=== PATIENT | female | born 1980 | race Caucasian/White ===

== ENCOUNTER 2018-08-01 12:08 | Inpatient (IN) ==
--- NOTE | 2018-08-01 12:41 | Diag Imaging Result Doc PS360 ---
EXAM: CHEST-1 VIEW HISTORY: sepsis TECHNIQUE: Chest single view COMPARISON: 09/04/2015 FINDINGS: The lungs are well expanded. The heart is not enlarged. The vessels are not distended. There are no infiltrates. No effusion identified. IMPRESSION: No pneumonia. Electronically signed by Baldev Naranjo 08/01/2018 12:39 PM
[2018-08-01 13:29] LABS: BASO# 0.03 X1000 (0.0-0.2); BASO% 0.2 % (0.0-0.8); EOS# 0.06 X1000 (0.0-0.7); EOS% 0.3 % (0.0-10.0); HEMATOCRIT 39.1 % (37.0-47.0); HEMOGLOBIN 13.5 g/dL (12.0-16.0); IMM GRAN# 0.09 X1000 (0.0-0.04); IMM GRAN% 0.5 % (0.0-0.5); LYMPH# 1.76 X1000 (1.2-3.4); LYMPH% 9.5 % (20.5-51.1); MCH 29.2 PG (27-31); MCHC 34.5 g/dL (33-37); MCV 84.6 FL (81-99); MONO# 0.93 X1000 (0.11-0.59); MPV 9.1 FL (7.4-10.4); NEUT# 15.73 X1000 (1.4-6.5); NEUT% 84.5 % (42.2-75.2); PLT 508 X1000 (130-400); RBC 4.62 XMIL (4.2-5.4); RDW 13.9 % (11.5-14.5)
[2018-08-01 13:44] LABS: INR 1.07; PROTIME 14.4 Seconds (11.0-16.0)
[2018-08-01 13:45] LABS: PTT 33.4 Seconds (22.3-41.8)
[2018-08-01] MEDS ORDERED: ZOFRAN IV ONE (13:57)
[2018-08-01] MEDS ORDERED: DILAUDID IV ONE (13:57)
[2018-08-01 13:58] LABS: AGAP 11; ALBUMIN 3.7 g/dL (3.5-5.0); ALKALINE PHOSPHATASE 91 U/L (32-104); BUN 11 mg/dL (8-22); CALCIUM 8.8 mg/dL (8.8-10.2); CHLORIDE 97 mmol/L (98-107); CK PROFILE 38 U/L (24-173); COSMO 268; CREATININE 0.7 mg/dL (0.5-0.9); ESTIMATED GFR > 60; GLUCOSE 110 mg/dL (70-104); GOT 10 U/L (10-30); GPT 8 U/L (10-36); SODIUM 134 mmol/L (136-145); TCO2 26 mmol/L (25-35); TOTAL PROTEIN 6.6 g/dL (6.3-8.3)
--- NOTE | 2018-08-01 14:07 | PROVIDER DOCUMENTATION ---
This chart was entered by Clary Marx Scribe, acting as scribe for Joe Haile MD. HPI-General Adult - General Chief Complaint: Return/Recheck Stated Complaint: FACE SWELLINGS Time Seen by Provider: 08/01/18 13:36 Source: patient Allergies/Adverse Reactions: Patient Allergies Allergy/AdvReac Type Severity Reaction Status Date / Time No Known Allergies Allergy Verified 02/24/17 20:00 Home Medications: Home Medication List Medication Instructions Recorded Confirmed Last Taken Type Buprenorphine/Naloxone S.l. 07/21/18 07/21/18 Unknown History [Suboxone 8 mg/2 mg] Clindamycin [Cleocin] 300 mg PO Q6HR #80 cap 07/21/18 Unknown Rx Ibuprofen [Motrin] 600 mg PO Q6HR #30 tab 07/21/18 Unknown Rx - History of Present Illness -Gen Adult Nature of Presenting Problems: 37yof c/o L-sided eyelid and L-sided facial swelling for two weeks. She reports that she was seen at [facility] on 07/21/18 for similar symptoms. She reports her symptoms have worsened recently. She reports she is taking prescribed clindamycin currently. She reports the swelling started with a toothache. She d enies any difficulty breathing. She denies having a PCP currently. She reports she is has current suboxone use. 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 She denies any other complaints currently. She denies fever, chills, nausea, vomiting, diarrhea, cp, and sob. Location of Pain/Injury: reports: face (L-sided eyelid and L-sided facial swelling) Quality of Pain: reports: other ("pain") Severity: reports: moderate Onset/Duration: reports: other (2 weeks) Timing: reports: still present, constant Context/Activities at Onset: reports: other (dental abscess) Modifying Factors: improves with: nothing Associated Symptoms: denies: chest pain, fever/chills, nausea, shortness of breath, vomiting Similar Symptoms Previously?: Yes Recently seen or treated by another doctor?: Yes Review of Systems - Adult - REVIEW OF SYSTEMS - ADULT Constitutional: denies: chills, fever Eyes: reports: no symptoms reported Ears, Nose, Mouth & Throat: reports: other (L-sided eyelid and L-sided facial swelling). denies: ear discharge, ear pain Cardiovascular: denies: chest pain, palpitations Respiratory: denies: cough, shortness of breath Gastrointestinal: denies: abdominal pain, diarrhea, nausea, vomiting Genitourinary: denies: dysuria, hematuria Musculoskeletal: denies: back pain, muscle aches, muscle weakness Integumentary: reports: no symptoms reported Neurological: denies: dizziness/vertigo, headache/migraines Psychiatric: reports: no symptoms reported Endocrine: reports: no symptoms reported Hematologic/Lymphatic: reports: no symptoms reported Allergic/Immunologic: reports: no symptoms reported All Other Systems: Reviewed and Negative Past History - Adult - PAST MEDICAL HISTORY-ADULT Review of Records: reports: Old Records Reviewed, Nursing Assessment Review, Medications Reviewed Major Childhood Illnesses: reports: denies history Cardiovascular: reports: HTN Respiratory: reports: denies history Gastrointestinal: reports: denies history Obstetrical/Gynecological: reports: denies history Genitourinary: reports: denies history Musculoskeletal: reports: denies history Neurological: reports: denies history Psychiatric: reports: anxiety, depression Endocrine/Immune: reports: denies history Other Conditions: reports: denies history - PRIOR SURGERIES/PROCEDURES Surgical/Procedure History: reports: BTL, cholecystectomy - IMMUNIZATION STATUS Childhood Immunizations: See Nurse Assessment Flu Vaccine: See Nurse Assessment - FAMILY HISTORY Family History: reviewed, not pertinent - SOCIAL HISTORY Smoking: cigarettes, less than 1 pack/day Substance Use: alcohol, opiates Living Situation: family Physical Exam-General - PHYSICAL EXAM-ADULT Initial Vital Signs Reviewed: Yes - CONSTITUTIONAL General Appearance: alert, moderate distress - EYES Eyes: PERRL/EOMI, pink conjunctivae - HEAD, EARS, NOSE, MOUTH & THROAT HENMT: other (L second upper molar large abscess, swelling and periorbital cellulitis extends to L-side of face) - NECK Neck: non-tender, supple - RESPIRATORY Respiratory: chest non-tender, lungs clear, normal breath sounds, no pleuratic chest pain, no respiratory distress, no accessory muscle use. negative: crackl es, wheezing - CARDIOVASCULAR Cardiovascular: regular rate, rhythm, no murmur. negative: bradycardia - SKIN Integumentary: normal color, warm/dry, other (L second upper molar large abscess, swelling and periorbital cellulitis extends to L-side of face). negative: cyanosis - NEUROLOGIC Neurologic: grossly normal, no motor/sensory deficits - PSYCHIATRIC Psych/Mental Status: normal mood/affect, normal thought content, normal thought process, oriented x 3 Progress - PLAN OF CARE/RESULTS Progress/Plan/Lab Results: Vital Signs - 8 hr 08/01/18 12:12 Temperature 100.4 F H Pulse Rate 113 H Respiratory Rate 21 Blood Pressure 139/92 O2 Sat by Pulse Oximetry 97 Laboratory Results - last 24 hr 08/01/18 08/01/18 08/01/18 13:13 13:13 13:20 WBC 18.60 H RBC 4.62 Hgb 13.5 Hct 39.1 MCV 84.6 MCH 29.2 MCHC 34.5 RDW Std Deviation 13.9 Plt Count 508 H MPV 9.1 Immature Gran % (Auto) 0.5 Neut % (Auto) 84.5 H Lymph % (Auto) 9.5 L [place] % (Auto) 5.0 Eos % (Auto) 0.3 Baso % (Auto) 0.2 Immature Gran # (Auto) 0.09 H Neut # (Auto) 15.73 H Lymph # (Auto) 1.76 [place] # (Auto) 0.93 H Eos # (Auto) 0.06 Baso # (Auto) 0.03 PT 14.4 INR 1.07 PTT (Actin FS) 33.4 Plasma Lactate 0.6 Orders Category Date Time Status Cardiac Monitoring DIRECTED Care 08/01/18 12:18 Active IV Insertion ORDERED Care 08/01/18 12:18 Active Notify MD of + Sepsis Screen NOW Care 08/01/18 12:18 Active Notify Physician As Ordered Care 08/01/18 12:18 Active CHEST-1 VIEW [RAD] Stat Exams 08/01/18 12:18 Completed BLOOD CULTURE [BLDCUL] Stat Lab 08/01/18 13:21 Ordered CBC WITH DIFF [HEME] Stat Lab 08/01/18 13:13 Completed CK PROFILE [SP CHEM] Stat Lab 08/01/18 13:21 Received COMPREHENSIVE METABOLIC PANEL [CHEM] Stat Lab 08/01/18 13:21 Received LACTATE, PLASMA [CHEM] Q3H Lab 08/01/18 13:20 Completed LACTATE, PLASMA [CHEM] Q3H Lab 08/01/18 15:30 Uncollected LACTATE, PLASMA [CHEM] Q3H Lab 08/01/18 18:30 Uncollected PROTIME WITH INR [COAG] Stat Lab 08/01/18 13:13 Completed PTT [COAG] Stat Lab 08/01/18 13:13 Completed TROPONIN T Stat Lab 08/01/18 13:[address] W/POSS RFLX CULT [URINALYSIS] Stat Lab 08/01/18 13:29 Received Oxygen Device Stat Oth 08/01/18 12:18 Active Result Diagrams: 08/01/18 13:13 08/01/18 13:13 - CONSULTS/PCP/HOSPITALIST Notification #1 *Consult/PCP/Hospitalist*: Dr. Jimenez Time Discussed: 13:48 Consult Disposition: Admit Departure - Departure Date of Disposition Decision: 08/01/18 Time of Disposition Decision: 13:52 DIAGNOSIS: Facial cellulitis, Dental abscess, Periorbital cellulitis of left eye Disposition: ADMITTED INPATIENT 09 Certified Medical Emergency: Emergent Condition: Fair Additional Freetext Instructions: ED Follow Up Instructions: You have been treated by a care provider in the Emergency Department. These instructions are being provided to you so you can have an understanding of how to care for yourself upon discharge. Upon discharge from the Emergency Department, you are responsible for making arrangements for follow-up care by a physician of your choice. Take all prescribed medications as directed. Return to the Emergency Department immediately for any new or worsening symptoms. You may call the Physician Referral phone number at [phone] to obtain a list of Physicians who are taking new patients. Referrals and Follow-Ups: None,PCP [Primary Care Provider] - Discharge Education: Dental Abscess, [id number], Cellulitis, Adult, [id number] - Critical Care Note This patient required my direct & personal management of CC.: No Attestation - Physician/ JIN Attestation Patient care was provided by Advanced Practice Provider:: No The physician spent face to face time with patient:: Yes Advanced Practice Provider documentation review:: Supervising physician onsite and consulted in the evaluation and care of this patient. The physician did have a face to face encounter with the patient. This chart was documented by the indicated scribe, (Clary Marx Scribe) and accurately reflects the services I performed and decisions made by me, Joe Haile MD, as attested by the provider's signature.
[2018-08-01 14:08] LABS: BILIRUBIN URINE NEGATIVE (NEGATIVE); BLOOD URINE 2+ (NEGATIVE); CLARITY VERY CLOUDY (CLEAR); COLOR AMBER; GLUCOSE URINE NEGATIVE (NEGATIVE); KETONE URINE 1+(Small) mg/dL (NEGATIVE); LEUKOCYTES URINE 1+ (NEGATIVE); NITRITE URINE NEGATIVE (NEGATIVE); PROTEIN URINE TRACE mg/dL (NEGATIVE); SP GRAVITY URINE 1.025; UROBILINOGEN URINE 1 mg/dL
[2018-08-01 14:11] LABS: URINE BACTERIA 1+ /HFP; URINE CAST NONE SEEN /LPF; URINE CRYSTAL NONE SEEN /HPF; URINE EPITHELIAL CELLS >10 /HPF (<10); URINE SOURCE CLEAN CATCH; URINE YEAST NONE SEEN /HPF
[2018-08-01] MEDS ORDERED: ZOSYN 3.375 GM in NS 50 ML IV ONE (14:52)
[2018-08-01] MEDS ORDERED: VANCOMYCIN IV PER PHARMACY MISC SCH (15:24)
[2018-08-01] MEDS ORDERED: NICODERM PATCH TD ONE (15:24)
[2018-08-01] MEDS ORDERED: TYLENOL PO PRN (15:24)
[2018-08-01] MEDS ORDERED: ZOFRAN IV PRN (15:24)
[2018-08-01] MEDS ORDERED: LOVENOX SUBQ SCH (15:24)
[2018-08-01] MEDS ORDERED: VANCOMYCIN 1,750 MG in NS 250 ML IV ONE (16:00)
--- NOTE | 2018-08-01 16:51 | Diag Imaging Result Doc PS360 ---
EXAM: CT MAXILLOFACIAL(SINUS) W/WO C HISTORY: facial cellulitis, tooth abscess TECHNIQUE: Routine with and without contrast. COMPARISON: 07/21/2018 FINDINGS: In addition to the diffuse left facial cellulitis, there is a large, multiloculated abscess involving the soft tissues of the left face. It extends from the preseptal soft tissues of the left orbit to the angle of mandible and measures 8.7 x 4.7 x 3 cm. There are at least two foci of gas within left. Periorbital/maxillary soft tissues. There is extensive reactive lymphadenopathy. There is no evidence for post septal cellulitis or abscess. There is mild left maxillary mucosal thickening. There is abscess collection directly overlying the left zygoma and direct extension/infiltration of the left masseter muscle. No bony destruction is appreciated. Mandible itself is grossly unremarkable. Major vascular structures of the neck enhance normally. This report was discussed with Marcelo CONTI on 08/01/2018 at 4:45 PM with read back verification. IMPRESSION: 1.Large multi loculated abscess left face. 2.Left preseptal, periorbital cellulitis and abscess. Electronically signed by Valencia Yusuf 08/01/2018 4:48 PM
[2018-08-01] MEDS: DILAUDID IV PRN ×2 (18:09→23:56)
[2018-08-01] MEDS ORDERED: XYLOCAINE 1% INJ ONE (19:51)
[2018-08-01] MEDS ORDERED: XYLOCAINE-MPF 1% 5 ML ONE (20:02)
--- NOTE | 2018-08-02 04:56 | HISTORY AND PHYSICAL ---
CHIEF COMPLAINT: Dental abscess with facial swelling. HISTORY OF PRESENT ILLNESS: Ms. Enriquez is a 37-year-old female who carries a past medical history of hypertension, anxiety and depression, who was seen in the [place] ED on 07/21/2018 for right upper back tooth abscess and left-sided facial swelling. She was given p.o. clindamycin and sent home. She states that she has been taking her clindamycin and ibuprofen as prescribed and has actually been taking an extra 1 each night for worsening swelling. She came back to the ED to be reassessed and to be admitted for outpatient failure of treatment. We will initiate her on IV antibiotics. We will check another facial CT to rule out any abscess. She does have some draining pus at this time that she did not have before from her abscessed tooth. She has redness and swelling to the left side of her face as well as periorbital edema. She is aware if needed she may be transferred to [facility] for I D. PAST MEDICAL HISTORY: 1. Hypertension. 2. Anxiety and depression. 3. Known left 2nd upper molar large abscess with swelling and pee orbital cellulitis. Failed outpatient treatment. A known Suboxone user. PAST SURGICAL HISTORY: 1. Tubal. 2. Gallbladder surgery. 3. Nerve blocks in the past. PAST FAMILY HISTORY: Reviewed. Noncontributory. SOCIAL HISTORY: She is . She is a smoker. Social alcohol. Opiate abuse in the past. HOME MEDICATIONS: Have not been verified; however, previously she was taking Suboxone, clindamycin and ibuprofen. REVIEW OF SYSTEMS: A 14 point review of systems was completely negative except for those mentioned in HPI. She denies any headache, fever, chills, nausea, vomiting, diarrhea, chest pain or shortness of breath. No problems with urination or bowel movements. PHYSICAL EXAMINATION: VITAL SIGNS: Initial temperature is 104, heart rate 113, respirations 15, blood pressure 139/92. O2 sat is 97% on room air. GENERAL: Ms. Enriquez is a pleasant 37-year-old female who is sitting up in the stretcher in no acute distress. HEENT: Atraumatic, normocephalic. PERRL. She does have left-sided facial swelling as well as periorbital edema, redness and tenderness noted to the left side of her face. CARDIOVASCULAR: S1, S2 appreciated. No murmurs, gallops or rubs noted. No JVD. No lower extremity edema. Bilateral pedal pulses are palpable. PULMONARY: Bilateral breath sounds clear. GASTROINTESTINAL: Soft, nontender, nondistended. Positive bowel sounds 4 quadrants. EXTREMITIES: No clubbing, no cyanosis. NEUROLOGIC: No focal deficits noted. SKIN: Again, she does have facial cellulitis on the left side with periorbital edema as well as edema to her left cheek. She does have pus draining from her upper 2nd molar. DIAGNOSTIC DATA: Pending maxillofacial CT. LABORATORY DATA: White count 18, hemoglobin and hematocrit 13 and 39, platelet count is 508,000. Sodium 134, potassium 4.0, BUN 11, creatinine 0.7, blood glucose is 110. Urinalysis is negative for nitrites, 1+ WBC, 1+ bacteria. The patient denies any urinary symptoms. Urine test was negative. Blood cultures pending. Urine culture pending. ASSESSMENT AND PLAN: 1. Failed outpatient dental abscess with right-sided facial cellulitis with periorbital edema. We will continue with IV antibiotics with vancomycin and Zosyn. Will await results of her facial CT. The patient may need an I and D. 2. Hypertension. Patient does not take any home medications secondary to being on Medicaid. 3. Anxiety and depression. 4. Opiate abuse. The patient is on Suboxone. 5. Further recommendation to follow physician evaluation, laboratory and diagnostic data. Dictated by SUSHILA Morales for Wil Jimenez MD cc: Wil Jimenez MD
[2018-08-02 05:46] LABS: AGAP 11; BUN 8 mg/dL (8-22); CALCIUM 8.4 mg/dL (8.8-10.2); CHLORIDE 100 mmol/L (98-107); COSMO 273; CREATININE 0.6 mg/dL (0.5-0.9); GLUCOSE 116 mg/dL (70-104); POTASSIUM 3.8 mmol/L (3.5-5.1); SODIUM 137 mmol/L (136-145); TCO2 26 mmol/L (25-35)
[2018-08-02] MEDS: ZOSYN 3.375 GM in NS 50 ML IV SCH ×5 (05:50→17:39)
[2018-08-02 06:11] LABS: BASO# 0.03 X1000 (0.0-0.2); BASO% 0.3 % (0.0-0.8); EOS# 0.27 X1000 (0.0-0.7); EOS% 2.7 % (0.0-10.0); HEMATOCRIT 35.6 % (37.0-47.0); HEMOGLOBIN 11.9 g/dL (12.0-16.0); IMM GRAN# 0.05 X1000 (0.0-0.04); IMM GRAN% 0.5 % (0.0-0.5); LYMPH# 2.31 X1000 (1.2-3.4); LYMPH% 23.4 % (20.5-51.1); MCH 28.1 PG (27-31); MCHC 33.4 g/dL (33-37); MCV 84.2 FL (81-99); MONO# 0.73 X1000 (0.11-0.59); MONO% 7.4 % (1.7-9.3); MPV 9.8 FL (7.4-10.4); NEUT% 65.7 % (42.2-75.2); PLT 453 X1000 (130-400); RBC 4.23 XMIL (4.2-5.4); RDW 13.9 % (11.5-14.5); WBC 9.89 X1000 (4.8-10.8)
[2018-08-02] MEDS: DILAUDID IV PRN ×5 (07:27→22:11)
--- NOTE | 2018-08-02 07:54 | HISTORY AND PHYSICAL ---
ADDENDUM REPORT Patient seen and examined by myself. Full note dictated and discussed with nurse practitioner. Patient presented to the hospital emergency department with complaints of facial swelling. Notes that the face has been swelling for the past 10 days to 2 weeks. She was seen in the ER, was given antibiotics for an abscess 2. States that the redness started several days after that, but she has not followed up with anyone. Over the past 2 days, redness and swelling have continued to worsen and now she is having lots of pain on her face. States the pain is intolerable and therefore she came to the ER. We will admit her to the hospital. She is having marked facial swelling with erythema. Extraocular eye movements are completely intact. She denies any blurred vision or change in her vision. PLAN: We will admit her to the hospital, place her on antibiotics. We will attempt to consult facial surgery as ENT declines to drain it. We currently do not have a facial surgeon on for our hospital. We called [facility] and are awaiting a phone call back in consultation. cc: Wil Jimenez MD
--- NOTE | 2018-08-02 08:57 | OPERATIVE NOTE ---
PROCEDURE DATE: 08/01/2018 PREOPERATIVE DIAGNOSIS: Left face abscess. POSTOPERATIVE DIAGNOSIS: Left face abscess. PROCEDURE: Incision and drainage of left face abscess. SURGEON: Romero Cruz MD. ESTIMATED BLOOD LOSS: Scant. COMPLICATIONS: None apparent. FINDINGS: Large copious amount of purulent fluid in the left face. TECHNIQUE: She was laid on her right side in her hospital bed. The skin was prepped with Betadine. 1% lidocaine was used to anesthetize the skin. An 11 blade was used to make a small incision into the fluctuant area. A copious amount of pus was drained out. The wound was packed with iodoform gauze. Sterile gauze was placed over this. There were no apparent complications. cc: MD Wil Carmen MD
--- NOTE | 2018-08-02 08:58 | GENERAL SURGERY CONSULTATION ---
DATE: 08/01/2018 REASON FOR CONSULTATION: Left face abscess. HISTORY OF PRESENT ILLNESS: This is a 37-year-old female who began having a toothache in her left upper posterior mouth toward the end of June. She said her tooth had broken several days before that and that filling had come out. Then she started having the ache. It got worse and worse and on 07/21/2018, she went to the ER. At the ER, she had a CT of her face which showed severe soft tissue swelling of the left face and jaw, representing cellulitis, and also severe sinusitis of the left maxillary sinus. She was sent home on antibiotics. It continued to get worse. The swelling increased, the pain increased, and she returned to the ER today. She had not had any appointment set up with any dentist in the meantime. Her maxillofacial CT today shows a large multiloculated abscess of the left face with preseptal and periorbital cellulitis and abscess. I have been asked to assist in her care. Apparently, there are no oral maxillofacial surgeons available today or tomorrow, and [facility] was called and they did not have a bed either. PAST MEDICAL HISTORY: Hypertension. PAST SURGICAL HISTORY: None pertinent. ALLERGIES: Latex. HOME MEDICATIONS: 1. Suboxone. 2. Clindamycin. 3. Ibuprofen. FAMILY HISTORY: Reviewed and noncontributory. SOCIAL HISTORY: She smokes less than 1 pack per day. No alcohol or illicit drug use. REVIEW OF SYSTEMS: Ten systems reviewed and negative except as noted above. PHYSICAL EXAMINATION: Vital Signs: Temperature 100.4 degrees, pulse 94, blood pressure 123/83, respiratory rate 16. General: She is a well-developed female who is sickly in appearance. No acute distress. HEENT: She has large amount of swelling over the left face, including the periorbital soft tissues, all of her maxilla and mandibular soft tissues, and her left upper neck is red, very tender, warm, and there is an increased area of fluctuance over the posterior mandible anterior to the tragus. In her mouth, her left upper molar appears to be diseased with an area of open sore on the gumline. She also has been spitting out purulent looking fluid several times during our conversation. Neck: Supple. No thyromegaly. CV: Regular rate and rhythm. Respiratory: No work of breathing. GI: Soft, nontender. No organomegaly. Extremities: No clubbing, cyanosis, or edema. Musculoskeletal: Moves all extremities equally and well. LABORATORY: White blood cell count 18,000, hemoglobin 13.5, hematocrit 39, and platelet count 508,000. Electrolytes reviewed and unremarkable. IMAGING: As described above in History of Present Illness. ASSESSMENT AND PLAN: A 37-year-old female with left facial abscess secondary to abscessed tooth. I will go ahead and perform incision and drainage over the fluctuant area of the face today. I discussed risks and benefits with her, including bleeding, infection, ongoing nonhealing nature of this wound until the tooth is dealt with, numbness, and other imponderables. She understands and agrees to proceed. Further efforts to get her in the care of an oral surgeon will be undertaken by the primary team tomorrow. cc: MD Wil Carmen MD
[2018-08-02] MEDS: NICODERM PATCH TD SCH (10:15)
[2018-08-02] MEDS: VANCOMYCIN 1,500 MG in NS 250 ML IV SCH (10:15)
--- NOTE | 2018-08-02 13:17 | PROGRESS NOTE ---
DATE: 08/02/2018 SUBJECTIVE: Patient notes she is still having [*]swelling in her face. She did have General Surgery drain the abscess on the outside. Unfortunately, still has other drainage internally. PHYSICAL EXAMINATION: Vital signs: Temperature 98 degrees, pulse 91, respiratory 18, blood pressure 113/70. General: Patient is awake, in no current respiratory distress. HEENT: Normocephalic. Neck: Supple. Cardiovascular: Regular rate. Chest: Clear. Abdomen: Soft. Extremities: Moves all extremities. Skin: Her swelling on the outside of her left lower jaw is still present but is somewhat improved due to drainage. Still has marked swelling over her left upper cheek making it difficult for her to open and close her eye. She still has full extraocular eye movements. LABORATORY DATA: WBCs down 9. ASSESSMENT: 1. Failed outpatient right-sided facial cellulitis with periorbital edema and a dental abscess. 2. Hypertension. 3. Leukocytosis. 4. Chronic opiate use and abuse. PLAN: We will continue patient in the hospital. Continue Zosyn and vancomycin. Her white count has improved slightly. She has had some improvement on the drainage on the outside. Dr. Swan, [facility], was consulted for transfer and does not feel as though she warrants inpatient transfer. Unfortunately, I am doubtful that her symptoms will improve without further surgical intervention, and we do not have that type of surgical intervention in [place]. She did have the abscess of the soft tissue on the outside drained but this is not the cause of the problem, it is a result of the problem. We will continue her on oral antibiotics and if not improved, we will call Surgery back. cc: Wil Jimenez MD
--- NOTE | 2018-08-02 20:06 | GENERAL SURGERY PROGRESS NOTE ---
DATE: 08/02/2018 SUBJECTIVE: The patient feels a little better with less swelling in her face, but she is still draining and has a lot of pain. OBJECTIVE: Vital Signs: She is afebrile. Vital signs are stable. General: She is awake and alert. No acute distress. HEENT: Face exam is significant for swelling on the left side, although it is less than yesterday. There remains induration and tenderness and purulent drainage from the incision and drainage site. I did remove the packing at the bedside. LABORATORY: White blood cell count now 9.9, hemoglobin 11.9. ASSESSMENT AND PLAN: A 37-year-old female with left facial abscess secondary to tooth abscess. She is going to stay on antibiotics at this time and the plans are being made to have her evaluated by an oral maxillofacial surgeon in the near future. cc: Romero Cruz MD
[2018-08-03] MEDS: ZOSYN 3.375 GM in NS 50 ML IV SCH ×4 (00:37→17:00)
[2018-08-03] MEDS: DILAUDID IV PRN ×5 (01:17→15:03)
[2018-08-03] MEDS: VANCOMYCIN 1,500 MG in NS 250 ML IV SCH (03:59)
[2018-08-03 07:18] LABS: HEMATOCRIT 34.2 % (37.0-47.0); HEMOGLOBIN 11.5 g/dL (12.0-16.0); MCH 28.6 PG (27-31); MCHC 33.6 g/dL (33-37); MCV 85.1 FL (81-99); MPV 9.5 FL (7.4-10.4); RBC 4.02 XMIL (4.2-5.4); RDW 13.6 % (11.5-14.5); WBC 5.19 X1000 (4.8-10.8)
[2018-08-03 07:40] LABS: AGAP 10; ALBUMIN 2.8 g/dL (3.5-5.0); ALKALINE PHOSPHATASE 66 U/L (32-104); BUN 8 mg/dL (8-22); CALCIUM 8.1 mg/dL (8.8-10.2); CHLORIDE 103 mmol/L (98-107); COSMO 273; CREATININE 0.6 mg/dL (0.5-0.9); ESTIMATED GFR > 60; GLUCOSE 88 mg/dL (70-104); GOT 9 U/L (10-30); GPT 6 U/L (10-36); MAGNESIUM 1.9 mg/dL (1.5-2.7); POTASSIUM 4.2 mmol/L (3.5-5.1); SODIUM 138 mmol/L (136-145); TCO2 25 mmol/L (25-35); TOTAL BILIRUBIN < 0.15 mg/dL (0.20-1.00); TOTAL PROTEIN 5.7 g/dL (6.3-8.3)
[2018-08-03] MEDS: NICODERM PATCH TD SCH (08:00)
[2018-08-03 14:31] VITALS: BP 124/68
[2018-08-03] MEDS ORDERED: TUMS PO ONE (15:07)
--- NOTE | 2018-08-04 04:07 | DISCHARGE SUMMARY ---
ADMISSION DATE: 08/01/2018 DISCHARGE DATE: 08/03/2018 PRIMARY CARE PROVIDER: None. PERTINENT PROCEDURES: Chest x-ray no pneumonia. Maxillofacial CT large multiloculated abscesses to the left side of the face, left preseptal periorbital cellulitis and abscess. I D of left facial abscess performed by Dr. Romero Cruz. CONSULTATIONS: Dr. Romero Cruz. DISCHARGE DIAGNOSES: 1. Left facial abscesses multi secondary to left upper tooth abscess with periorbital edema and cellulitis. The patient was initiated on intravenous antibiotics. Attempts were made to have oral surgeon, as well as Ear, Nose and Throat come in and drainage the tooth without any luck. We also attempted to transferred her to [facility] without any luck. Dr. Romero Cruz was kind enough to come in and drain her left-sided facial abscess. She did improve with intravenous antibiotic, and we have made her an appointment to follow up with Dr. Lam on 08/04/2018 at 1:15 p.m. for tooth extractions, possibly multiple. She will be discharged on by mouth Augmentin. 2. Failed outpatient right-sided facial cellulitis with perioral edema and dental abscess. See #1. 3. Hypertension, stable. 4. Leukocytosis secondary to #1. 5. Chronic opiate use and abuse. The patient is on Suboxone. HOSPITAL COURSE: Briefly, Ms. Enriquez is a 37-year-old female who carries a past medical history of hypertension, anxiety and depression, was seen at [facility] on 07/21/2018 for a right upper back tooth abscess and left-sided facial swelling. She was discharged with p.o. clindamycin from the ER. She had been taking clindamycin and ibuprofen, as well as taking an extra clindamycin because of worsening of swelling. She came back to [facility] ED to be reassessed and was admitted for outpatient failure of treatment. We initiated her on broad-spectrum IV antibiotics with vancomycin and Zosyn. We did another facial CT to rule out any abscesses, unfortunately it showed she had multiloculated left-sided facial abscesses, as well as preseptal and periorbital edema with abscess. Again we made multiple attempts for oral surgery, ENT as well as transferred to [facility] for oral and ENT without any luck. General Surgery with Dr. Romero Cruz was kind enough to come in and drain her left-sided facial abscess. She had improvement with the I D as well as the IV antibiotics. Her swelling has gone down and she has shown great improvement. Her white count has significantly gone down from 18 to 5. We have made her an appointment with Dr. Lam for tooth extraction tomorrow, and she will be discharged home today after 5 p.m. after her last dose of IV antibiotics and will be transitioned to p.o. Augmentin. DISCHARGE VITAL SIGNS: At time of discharge temperature is 97.8 degrees, heart rate 80, respirations 20, blood pressure 124/68, O2 saturation is 82% on room air. DISCHARGE DIET: Regular. DISCHARGE MEDICATIONS: 1. Home Suboxone. 2. Augmentin 1 each p.o. b.i.d. for 10 days. 3. Tylenol 650 mg p.o. q.6 hours p.r.n. [id number]. 4. Zofran 4 mg ODT 4 mg p.o. q.6 hours p.r.n. for 12 tablets. FOLLOW-UP: Ms. Enriquez will be discharged home after her 5 p.m. antibiotic. She is to follow up with Dr. Lam, oral surgeon, on 08/04/2018 at 1:15 p.m. Now that the patient has her Medicaid she is encouraged to continue with regular dentist follow-ups as well as obtain a primary care provider of her choosing. To take all medications as prescribed. She can return to the ED or call 911 for any worsening of symptoms. Dictated by SUSHILA Morales for Wil Jimenez MD cc: MD Romero Vines MD
--- NOTE | 2018-08-04 05:24 | DISCHARGE SUMMARY ---
ADMISSION DATE: 08/01/2018 DISCHARGE DATE: 08/03/2018 ADDENDUM To the discharge summary dictated 08/04/2018. Patient seen and examined by myself. Full note dictated and discussed with nurse practitioner. Patient's left side of her face is much improved. She has marked improvement in swelling. She has no further drainage. Her pain is improved as well, although still present. We will discharge her home so she can go to oral surgery's appointment in the morning. Certainly, we would prefer patient stay in the hospital on IV antibiotics for a couple more days, but then that would put us well into the weekend and past any opportunity for surgery to see her. Expect that oral surgery will be required to fix her current dental infection, which is what caused her abscess and her facial swelling. We will discharge her home on antibiotics for her appointment in the morning. The patient understands the importance of going to this appointment. cc: Wil Jimenez MD
== END 2018-08-03 18:00 | disposition home or self-care (01) | DRG 580 ==
LOC: P.ED 12:08 → P.MEDSURG 14:41
PROVIDERS: ATTEND Family Medicine
CPT/HCPCS: 36415; 70488; 71010; 71045; 80048; 80053; 81001; 81025; 82550; 83605; 83735; 84484; 85025; 85027; 85610; 85730; 87040; 87088; 94761; A9270; J1170; J1650; J2405; J2543; J3370; J7050; Q9967